=== PATIENT | female | born 1970 | race Caucasian/White ===

== ENCOUNTER 2022-11-28 14:55 | Outpatient (REF) | payer MEDICARE, SELFPAY ==
[2022-11-28 17:25] LABS: MANUAL DIFF FLAG NO
[2022-11-28 18:10] LABS: Basophils Absolute Auto 0.1 X10*3/uL (0.0-0.2); Basophils Percent Auto 0.6 % (0-2); Eosinophils Absolute Auto 0.4 X10*3/uL (0.0-0.4); Eosinophils Percent Auto 4.5 % (0-4); Hematocrit 39.5 % (37.0-47.0); Hemoglobin 13.4 g/dl (12.0-16.0); Imm Gran Abs Auto 0.04 X10*3/uL (0.00-0.03); Imm Gran Pct Auto 0.4 % (0.0-0.4); Lymphocytes Absolute Auto 2.5 X10*3/uL (1.2-4.9); Lymphocytes Percent Auto 26.8 % (20-40); Mean Corpuscular HGB Conc 33.9 g/dl (31.0-35.0); Mean Corpuscular Hemoglobin 34.3 pg (27.0-33.0); Mean Platelet Volume 11.5 fL (9.4-12.3); Monocytes Absolute Auto 0.8 X10*3/uL (0.1-1.2); Monocytes Percent Auto 8.7 % (2-11); Neutrophils Absolute Auto 5.6 x10*3/uL (2.0-8.3); Platelet Count 110 X10*3/uL (160-400); Red Blood Count 3.91 X10*6/uL (4.20-5.50); Red Cell Distribution Width 14.5 % (11.0-16.0); White Blood Count 9.5 X10*3/uL (4.8-10.8)
[2022-11-28 18:58] LABS: Alanine Aminotransferase 31 U/L (0-31); Albumin Level 3.6 g/dL (3.5-5.0); Alkaline Phosphatase 104 U/L (39-117); Anion Gap 14 (12-20); Aspartate Amino Transferase 60 U/L (5-31); Bilirubin Total 1.6 mg/dL (0.0-1.0); Blood Urea Nitrogen 11 mg/dL (9-16); Calcium 9.6 mg/dL (8.4-10.2); Carbon Dioxide 25 mmol/L (22-29); Chloride 101 mmol/L (96-108); Cholesterol 168 mg/dL; Estimated Glomerular Filt Rate > 60; Glucose Fasting 99 mg/dL (60-99); HDL Cholesterol 20 mg/dL; Iron 77 mcg/dL (30-160); LDL Cholesterol Calculated 110 mg/dl; Percent Iron Saturation 27 % (15-50); Potassium 3.1 mmol/L (3.3-5.1); Sodium 137 mmol/L (135-145); Total Iron Binding Capacity 287 mcg/dL (228-428); Total Protein 8.7 g/dL (6.5-8.0); Triglycerides 191 mg/dL; Unsaturated Iron Binding 210 ug/dL
[2022-11-28 19:08] LABS: Ferritin 368 ng/mL (10-250); TSH reflex Free T4 1.61 uIU/mL (0.32-4.0); Vitamin D 25-OH Total 12.4 ng/mL (>30)
[2022-11-29 05:29] LABS: Estimated Average Glucose 114 mg/dL; Hemoglobin A1C 134.3202 umol/L; Hemoglobin A1c % 5.6 %
== END 2022-11-28 14:56 | disposition home or self-care (01) ==
LOC: HO.CHCLDS 14:55
PROVIDERS: Visit Provider Family Medicine
DX: R30.0 Dysuria (principal); I10 Essential (primary) hypertension; E66.01 Morbid (severe) obesity due to excess calories; L65.9 Nonscarring hair loss, unspecified
CPT/HCPCS: 36415; 80053; 80061; 82306; 82652; 82728; 83036; 83540; 84443; 85025; 87086; 87088; 87186

== ENCOUNTER 2022-12-04 14:05 | Outpatient (REF) | payer MEDICARE, SELFPAY ==
[2022-12-04 17:59] LABS: Anion Gap 15 (12-20); Blood Urea Nitrogen 12 mg/dL (9-16); Calcium 8.9 mg/dL (8.4-10.2); Carbon Dioxide 23 mmol/L (22-29); Chloride 103 mmol/L (96-108); Estimated Glomerular Filt Rate > 60; Glucose Random 74 mg/dL (60-115); Potassium 3.5 mmol/L (3.3-5.1); Sodium 137 mmol/L (135-145)
== END 2022-12-04 14:06 | disposition home or self-care (01) ==
LOC: HO.CHCLDS 14:05
PROVIDERS: Visit Provider Family Medicine
DX: E87.6 Hypokalemia (principal)
CPT/HCPCS: 36415; 80048

== ENCOUNTER 2023-08-05 14:36 | Outpatient (AMB) | payer MEDICARE, MEDICAID, SELFPAY ==
--- NOTE | 2023-08-05 14:42 | MHC.OFFVIS ---
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 Patient has wounds on her left foot , dressing changed daily at home. States wounds being treated at [facility]. Patient ambulates with walker and wheelchair. Had vein procedures back in 2016, states she's had [address] Light. 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 Complaints include pain over varicosities, swelling of lower extremities, cramping, fatigue, and heaviness of the lower extremities. She actually has a nonhealing ulcer on the left portion of her foot that has been nonhealing since January of 2023. She has been followed by the [facility].. It is noted more so in left leg. Of note she has been diagnosed and treated for congestive heart failure as well. Patient notes 5 or 6 different venous procedures performed by Dr. Light in the past Patient denies any history of DVT/ PE. Patient denies any history of phlebitis. Trial of compression includes - [id number] which she was unable to tolerate and currently is using Bipin wraps They now present for vascular evaluation regarding their varicose veins. Review of Systems Const Reports as per HPI ENT Reports no additional complaints Card Denies chest pain, Denies chest pain at rest and Denies chest pain with activity Resp Denies chest congestion and Denies cough GI Reports no additional complaints Musc Details: pain over varicosities, aching of lower extremities, swelling, cramping, heaviness and tiredness, itching Denies abnormal gait Skin/Breast Reports pruritus and Denies wounds Neuro Reports no additional complaints and Denies abnormal gait Psych Denies no additional complaints Physical Exam Const General: cooperative, healthy appearing and comfortable Orientation/consciousness: oriented to person, oriented to place and oriented to time Neck Carotids: no bruits Chest Chest palpation & inspection: normal inspection of the chest and normal palpation of entire chest wall Resp Effort & Inspection: normal respiratory effort and able to speak in complete sentences Cardio Rate: regular rate Heart sounds: S1 normal heart sound present and S2 normal heart sound present Peripheral pulses: Peripheral pulses 2+ throughout GI Inspection: Yes normal to inspection Skin Other: +2 edema CEAP Classification C6 - active ulceration Ep - Etiology Primary As - superficial veins P - reflux General skin exam: dry skin Neuro General: oriented to person, oriented to place and oriented to time Extrem Right lower extremity: full ROM, normal capillary refill and edema Left lower extremity: full ROM, normal capillary refill and edema Psych Mental Status: mental status grossly normal Assessment & Plan Assessment & Plan (1) Varicose veins of left lower extremity with inflammation: Code(s): I83.12 - Varicose veins of left lower extremity with inflammation Plan: In short patient has significantly edematous lower extremities which may be leading to the nonhealing of her foot ulceration. We did discuss that this may be multifactorial in nature. She is obese does have a history of congestive heart failure in addition has a known history of venous disease as well. I have taken the liberty of repeating her venous insufficiency testing to see if there is any additional varicosities that may need treatment. In addition she may need lymphedema treatment as well. She will continue care at the [facility]. She will follow up with us after venous insufficiency testing. Thank you for allowing us to assist in her care. If there are any questions or concerns please do not hesitate to contact us. Orders: Orders US venous duplex LE BI 1 Week I83.12 - Varicose veins of left lower extremity with inflammation Coding Level of Care Code Est Pt Level 4 (36200) Diagnoses Varicose veins of left lower extremity with inflammation I83.12
== END 2023-08-05 15:46 | disposition home or self-care (01) ==
PROVIDERS: PCP Family Medicine; Visit Provider Surgery Vascular Surgery
DX: I83.12 Varicose veins of left lower extremity with inflammation (principal)
CPT/HCPCS: 99213

== ENCOUNTER → 2023-08-05 14:36 | Outpatient (BNVA) | payer MEDICARE, SELFPAY | PROVIDERS: PCP Family Medicine; Visit Provider Surgery Vascular Surgery | DX: I83.12 Varicose veins of left lower extremity with inflammation (principal) | CPT/HCPCS: 99212 ==

== ENCOUNTER 2023-12-12 11:51 | Outpatient (REF) | payer MEDICARE, MEDICAID, SELFPAY ==
[2023-12-12 14:17] LABS: MANUAL DIFF FLAG NO
[2023-12-12 14:45] LABS: Basophils Absolute Auto 0.1 X10*3/uL (0.0-0.2); Basophils Percent Auto 0.9 % (0-2); Eosinophils Absolute Auto 0.4 X10*3/uL (0.0-0.4); Hematocrit 48.2 % (37.0-47.0); Hemoglobin 16.3 g/dl (12.0-16.0); Imm Gran Abs Auto 0.02 X10*3/uL (0.00-0.03); Imm Gran Pct Auto 0.2 % (0.0-0.4); Lymphocytes Absolute Auto 2.5 X10*3/uL (1.2-4.9); Lymphocytes Percent Auto 28.5 % (20-40); Mean Corpuscular HGB Conc 33.8 g/dl (31.0-35.0); Mean Corpuscular Hemoglobin 34.2 pg (27.0-33.0); Mean Platelet Volume 11.2 fL (9.4-12.3); Monocytes Absolute Auto 0.9 X10*3/uL (0.1-1.2); Monocytes Percent Auto 10.6 % (2-11); Neutrophils Absolute Auto 4.9 x10*3/uL (2.0-8.3); Neutrophils Percent Auto 55.8 % (45-73); Platelet Count 111 X10*3/uL (160-400); Red Blood Count 4.77 X10*6/uL (4.20-5.50); Red Cell Distribution Width 14.1 % (11.0-16.0); White Blood Count 8.7 X10*3/uL (4.8-10.8)
[2023-12-12 14:56] LABS: B Type Natriuretic Peptide 20 pg/mL (<100)
[2023-12-12 15:02] LABS: Alanine Aminotransferase 22 U/L (0-31); Alkaline Phosphatase 92 U/L (39-117); Anion Gap 15 (12-20); Aspartate Amino Transferase 37 U/L (5-31); Bilirubin Total 2.7 mg/dL (0.0-1.0); Blood Urea Nitrogen 13 mg/dL (9-16); Carbon Dioxide 26 mmol/L (22-29); Chloride 100 mmol/L (96-108); Cholesterol 196 mg/dL (<200); Estimated Glomerular Filt Rate > 60; Glucose Random 111 mg/dL (60-115); HDL Cholesterol 45 mg/dL (>40); LDL Cholesterol Calculated 127 mg/dL (<100); Magnesium 2.2 mg/dL (1.6-2.6); Potassium 3.5 mmol/L (3.3-5.1); Sodium 137 mmol/L (135-145); Total Protein 8.9 g/dL (6.5-8.0); Triglycerides 120 mg/dL (<150)
[2023-12-12 15:11] LABS: Creatinine Urine 118.64 mg/dL; Microalbum/Creatinine Ratio Ur 8.4 ug/mg cr (<30)
[2023-12-12 15:14] LABS: HIV AB/AG Nonreactive (Nonreactive); HIV Num 1 0.05 S/CO (0.00-0.99); ~HepC Num1 0.21 S/CO (0.00-0.79); ~Hepatitis C Antibody Nonreactive (Nonreactive)
[2023-12-12 15:23] LABS: Ferritin 255 ng/mL (10-250); TSH reflex Free T4 1.63 uIU/mL (0.32-4.0); Vitamin D 25-OH Total 66.3 ng/mL (>30)
== END 2023-12-12 11:52 | disposition home or self-care (01) ==
LOC: HO.CHCLDS 11:51
PROVIDERS: Visit Provider Family Medicine
DX: E66.01 Morbid (severe) obesity due to excess calories (principal); M19.90 Unspecified osteoarthritis, unspecified site; Z13.9 Encounter for screening, unspecified; L65.9 Nonscarring hair loss, unspecified; I50.32 Chronic diastolic (congestive) heart failure
CPT/HCPCS: 36415; 80053; 80061; 82043; 82306; 82570; 82728; 83735; 83880; 84443; 85025; 86803; 87389

== ENCOUNTER 2023-12-31 12:50 | Outpatient (REF) | payer MEDICARE, MEDICAID, SELFPAY ==
--- NOTE | ~2023-12-31 | US_ITS ---
EXAMINATION: US LOWER EXTREMITY VENOUS (REFLUX EXAM), BILATERAL CLINICAL INDICATION: Chronic venous insufficiency with lower extremity varicose veins and inflammation. History of multiple prior venous procedures. Nonhealing venous wounds COMPARISON: None. TECHNIQUE: Color flow triplex imaging and compression Doppler was performed to evaluate both the deep and the superficial systems bilaterally. To evaluate the superficial system, the examination was performed in the upright position. Color-flow Doppler ultrasound and compression ultrasound were utilized. In addition, maneuvers were utilized to demonstrate reflux. FINDINGS: 1. DEEP VENOUS ULTRASOUND OF THE RIGHT LOWER EXTREMITY: Common Femoral Vein: Compressible, normal respiratory variation and augmented flow. Femoral Vein: Compressible, normal color flow and augmentation. Popliteal Vein: Compressible, normal augmentation. Deep Reflux: There is no evidence of reflux in the deep system in either the common femoral vein, superficial femoral or the popliteal vein. There is no evidence of a Streeter's cyst. 2. SUPERFICIAL ULTRASOUND WITH DOPPLER OF RIGHT LOWER EXTREMITY: GREAT SAPHENOUS VEIN: Saphenofemoral Junction: 0.8 cm; Reflux: 0 ms Proximal Thigh: 0.8 cm; Reflux: 0 ms Mid Thigh: 0.7 cm; Reflux: 0 ms Above Knee: 0.5 cm; Reflux: 0 ms At Knee: 0.3 cm; Reflux: 0 ms Below Knee: 0.2 cm; Reflux: 0 ms Mid Calf: Not visualized Ankle: Not visualized DUPLICATED MEDIAL GREAT SAPHENOUS VEIN: Diameter: None imaged Reflux: NA DUPLICATED LATERAL GREAT SAPHENOUS VEIN: Diameter: 0.4 cm Reflux: NA SMALL SAPHENOUS VEIN: Saphenopopliteal Junction: 0.4 cm; Reflux: 0 ms Proximal: 0.3 cm; Reflux: 0 ms Distal: 0.3 cm; Reflux: 0 ms VEIN OF GIACOMINI: Size: NA Reflux: NA PERFORATORS: Location: None imaged Size: NA Reflux: NA VARICOSITIES: Location: Mid thigh and distal thigh off the great saphenous vein Size: 0.3 to 0.6 cm Reflux: None VARICOSITIES: Location: Posterior mid calf Reflux: Occluded with focal thrombus 3. DEEP VENOUS ULTRASOUND OF THE LEFT LOWER EXTREMITY: Common Femoral Vein: Compressible, normal respiratory variation and augmented flow. Femoral Vein: Compressible, normal color flow and augmentation. Popliteal Vein: Compressible, normal augmentation. Deep Reflux: Deep venous reflux in the popliteal vein measuring 1204 ms There is no evidence of a Streeter's cyst. 4. SUPERFICIAL ULTRASOUND WITH DOPPLER OF LEFT LOWER EXTREMITY: GREAT SAPHENOUS VEIN: Saphenofemoral Junction: 0.9 cm; Reflux: 0 ms Proximal Thigh: 0.6 cm; Reflux: 1644 ms Mid Thigh: Not visualized Above Knee: Not visualized At Knee: Not visualized Below Knee: Not visualized Mid Calf: Not visualized Ankle: Not visualized DUPLICATED MEDIAL GREAT SAPHENOUS VEIN: Diameter: None imaged Reflux: NA DUPLICATED LATERAL GREAT SAPHENOUS VEIN: Diameter: None imaged Reflux: NA SMALL SAPHENOUS VEIN: Saphenopopliteal Junction: 0.4 cm; Reflux: 0 ms Proximal: 0.4 cm; Reflux: 0 ms Distal: 0.4 cm; Reflux: 0 ms VEIN OF GIACOMINI: Size: NA Reflux: NA PERFORATORS: Location: None imaged Size: NA Reflux: NA VARICOSITIES: Location: Proximal thigh of the great saphenous vein subsequently extending through the mid thigh, distal thigh and proximal calf Size: 0.3 to 0.5 cm Reflux: 800 ms US/US venous duplex LE BI IMPRESSION: Right: Superficial thrombophlebitis within varicose vein in the posterior mid calf. The great saphenous vein in the mid calf and ankle is not visualized. No significant venous insufficiency or reflux in the visualized great saphenous vein or small saphenous vein Left: Left great saphenous vein from the mid thigh through the calf is not visualized consistent with prior procedures. Varicose vein extending off the residual greater saphenous vein with reflux as described above Electronically signed by: Osmin Mccray MD 01/05/2024 03:35 PM EDT
== END 2023-12-31 12:51 | disposition home or self-care (01) ==
LOC: HO.US 12:50
PROVIDERS: PCP Family Medicine; Visit Provider Surgery Vascular Surgery
DX: I83.12 Varicose veins of left lower extremity with inflammation (principal)
CPT/HCPCS: 93970

== ENCOUNTER 2024-06-21 14:49 | Outpatient (AMB) | payer MEDICARE, MEDICAID, SELFPAY ==
--- NOTE | 2024-06-21 14:51 | A.OFFVIS_ITS ---
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 Previously was seen at [facility] but would like to switch. It seems that she has been hospitalized in the past with a diagnosis of congestive heart failure. Currently, she comes in a wheelchair. She states she has neuropathy in her feet and hence has difficulty walking. Minimal ambulation according to her. Within limits of her activity, she is not having any chest pain or shortness of breath or in fact any cardiac symptoms at all. No prior history of any coronary disease or myocardial infarction. Has hypertension on appropriate regimen. Denies any history of diabetes. Listed to be a smoker. [facility] Medical History (Updated 06/21/24 @ 15:29 by Ho Caban MD) Primary hypertension Chronic heart failure with preserved ejection fraction (HFpEF) CHF (congestive heart failure) Family History (Updated 06/21/24 @ 14:59 by Jeanette Boston) Father Heart attack Mother Asthma Social History (Updated 06/21/24 @ 15:00 by Jeanette Boston) Alcohol intake: current Alcohol intake frequency: a few times a week Alcohol type: beer and wine Tobacco use type: Cigarette Cigarettes Per Day: 3 Review of Systems Const Denies weakness ENT Denies dizziness Card Denies chest pain, Denies chest pain with activity, Denies syncope, Denies rapid heart rate, Denies pedal edema, Denies edema, Denies leg edema, Denies lightheadedness, Denies palpitations, Denies dyspnea, Denies dyspnea on exertion and Denies orthopnea Resp Denies cough, Denies dyspnea and Denies dyspnea on exertion GI Denies hematochezia and Denies change in stool character Musc Denies abnormal gait, Denies muscle cramps, Denies muscle weakness, Denies numbness, Denies radiating pain into limb and Denies tingling Neuro Denies abnormal gait, Denies dizziness, Denies syncope, Denies numbness, Denies tingling and Denies weakness Endo Denies palpitations Physical Exam Vital Signs: Last Vital Signs Pulse 80 06/21/24 14:52 BP 124/68 06/21/24 14:52 BMI result Body Mass Index 45.4 Const General: comfortable and no acute distress Orientation/consciousness: patient oriented x3 HEENT Other: Unremarkable Head: Yes normal to inspection Neck Neck: Yes normal visual inspection Chest Chest palpation & inspection: normal inspection of the chest Resp Auscultation: clear to auscultation bilaterally Cardio Palpation: normal PMI Heart sounds: S1 normal heart sound present, S2 normal heart sound present, no gallops, Murmur heart sound present systolic III/ and at the right sternal border and no rubs GI Palpation (GI): Soft to palpation Back/Spine/Pelvis Other: unremarkable Skin General skin exam: no rashes or lesions noted Neuro General: patient oriented x3 Extrem General: Yes normal to inspection Psych Mental Status: mental status grossly normal Office Procedures EKG Details: EKG with underlying sinus rhythm at 76/Min; cannot exclude old anterior infarct but more likely from body habitus; [place] [id number], Complete Assessment & Plan Assessment & Plan (1) Chronic heart failure with preserved ejection fraction (HFpEF): Code(s): I50.32 - Chronic diastolic (congestive) heart failure Category: Medical (2) Primary hypertension: Code(s): I10 - Essential (primary) hypertension Category: Medical Plan Overall, history of heart failure with preserved ejection fraction, hypertension, poor mobility, reasonably stable with no active symptoms. She may continue the current regimen of amlodipine, lisinopril hydrochlorothiazide. Does not seem to be on any other diuretics. In forced lifestyle changes including appropriate diet for congestive heart failure. She has an aortic stenosis murmur on exam and hence we will get an echocardiogram for further evaluation. A cardiac BNP checked last year was well within normal limits and hence reassuring. Follow-up in 3 months. Discussed with family who came for appointment. Orders: Orders CA echo transthoracic complete Today I35.0 - Nonrheumatic aortic (valve) stenosis, I50.32 - Chronic diastolic (congestive) heart failure Coding Level of Care Code New Pt Level 4 (25356) Complex EM visit Add On G2211 Diagnoses Chronic heart failure with preserved ejection fraction (HFpEF) I50.32 Primary hypertension I10 CPT Codes EKG - CPT: 41065-[id number], Complete ([id number])
[2024-06-21 14:52] VITALS: BP 124/68; PULSE 80; BMI 45.4
--- OUTSIDE RECORDS SUMMARY | 2024-06-21 17:38 | XMS_ITS | Encounter Summary ---
Author Organization [employer] Address [address] [facility] [address] [place] [address] Care Team Providers Care Senior Project Accountant Name Role Phone Michelle Butterfield MD Primary Care Provider [phone] Encounter Details Date Type Department Care Team (Late st Contact Info) Description 12/09/2022 [facility] Management [address] [place] [address] Michelle Butterfield MD [address] [place], [place] [id number] Social History Tobacco Use Types Packs/Day Years Used Date Smoking Tobacco: Every Day Cigarettes Passive Smoke Exposure: Never Smokeless Tobacco: Current Comments Unknown Sex and Gender Information Value Date Recorded Sex Assigned at Female 10/16/2022 4:35 PM EDT Legal Sex Female 4:33 PM EDT Gender Identity Female 10/16/2022 4:35 PM EDT Sexual Orientation Straight 10/16/2022 4: 35 PM EDT documented as of this encounter Plan of Treatment Not on file documented as of this encounter Visit Diagnoses Not on filedocumented in this encounter Care Teams Senior Project Accountant Relationship Specialty Start Date End Date Michelle Butterfield MD [address] [place] [address] PCP - General Family Medicine 12/27/22 Prabhakar Delaney [address] [place] [address], [address], [place] [address] Consulting Physician Podiatry 02/24/23 documented as of this encounter
--- OUTSIDE RECORDS SUMMARY | 2024-06-21 17:38 | XMS_ITS | Clinical Summary ---
Author Organization [facility] Address [address] [place] [address] Care Team Providers Care Senior Branch Manager Name Role Phone Lula Jesus MD Primary Care Provider [phone] Medications amLODIPine (NORVASC) 10 MG tablet Take 10 mg by mouth 1 (one) time each day 05/21/19 22 Active buPROPion XL (WELLBUTRIN XL) 150 MG 24 hr tablet bupropion HCl XL 150 mg 24 hr tablet, extended release 01/04/20 21 Active clotrimazole (LOTRIMIN) 1 % cream clotrimazole 1 % topical cream Active furosemide (LASIX) 20 MG tablet TAKE 1 TABLET BY MOUTH EVERY DAY DOSE REDUCED 05/20/19 22 Active gabapentin (NEURONTIN) 300 MG capsule Take 300 mg by mouth in the morning and 300 mg at noon and 300 mg in the evening. 05/21/19 22 Active hydroCHLOROth iazide 25 MG tablet hydrochlorothiazide 25 mg tablet TAKE 1 TABLET BY MOUTH EVERY DAY Active lisinopril 5 MG tablet Take 5 mg by mouth 1 (one) time each day 05/18/19 22 Active nitrofurantoi n, macrocrystal- monohydrate, (MACROBID) 100 MG capsule TAKE 1 CAPSULE BY MOUTH TWICE A DAY FOR 5 DAYS 04/10/20 21 Active Active Problems Problem Noted Date Diagnosed Date Abnormal cervical Papanicolaou smear 05/29/2021 Hypertensive disorder 05/29/2021 Morbid obesity 05/29/2021 Immunizations Name Administration Dates Next Due Hepatitis B 11/24/2018 MMR 11/24/2018 Social History Tobacco Use Types Packs/Day Years Used Date Smoking Tobacco: Never Assessed Comments Unknown Sex and Gender Information Value Date Recorded Sex Assigned at Not on file Legal Sex Female 3:46 PM EST Gender Identity Not on file Sexual Orientation Not on file Plan of Treatment Health Maintenance Due Date Last Done Comments Breast Cancer Screening 1970 Hepatitis B Vaccine (1 of 3 - 19+ 3-dose series) 02/09/1988 11/24/2018 Colorectal Cancer Screening: Annual FOBT 2018 Colorectal Cancer Screening: Colonoscopy 2018 Colorectal Cancer Screening: Sigmoidoscopy 2018 Influenza Vaccine (#1) 2023 Pneumococcal Vaccine: Pediat rics (0 to 5 Years) and At-Risk Patients (6 to 64 Years) Aged Out No longer eligi ble based on patient's age to complete this topic Insurance Care Teams Senior Branch Manager Relationship Specialty Start Date End Date Lula Jesus MD [address] [place] [address] PCP - General Internal Medicine 04/16/21
--- OUTSIDE RECORDS SUMMARY | 2024-06-21 17:38 | XMS_ITS | Encounter Summary ---
Author Organization [employer] Address [address] [place] [address] Care Team Providers Care Bowling Ball Engraver Name Role Phone Michelle Butterfield MD Primary Care Provider [phone] Reason for Visit * Reason Onset Date Comments Appointment Request 06/04/2023 Encounter Details Date Type Department Care Team ([facility] st Contact Info) Description 06/04/2023 Telephone [facility] [address] [place] [address] Michelle Butterfield MD [address] [place], [place] [phone] Appointment Request Social History Tobacco Use Types Packs/Day Years Used Date Smoking Tobacco: Every Day Cigarettes Passive Smoke Exposure: Never Smokeless Tobacco: Current Housing Stability Answer Date Recorded What is your housing situation today? I have damion oseguera 02/06/[address] you li ve. Do you have problems with any of the following? None of the above 02/06/2023 Food Insecurity Answer Date Recorded Within the past 12 months, y ou worried that your food would run out before you got money to buy more: Never True 02/06/2023 Within the past 12 months,th e food you bought just didn't last and you didn't have enough money to get more: Never True Transportation Answer Date Recorded In the past 12 months, has l ack of transportation kept you from medical appts, meetings, work or from getting things needed for daily living? No 02/06/2023 Utilities Answer Date Recorded In the past 12 months, has t he electric, gas, oil or water company threatened to shut off services in your home? No 02/06/2023 Comments Unknown Sex and Gender Information Value Date Recorded Sex Assigned at Female 10/16/2022 4:35 PM EDT Legal Sex Female 4:33 PM EDT Gender Identity Female 10/16/2022 4:35 PM EDT Sexual Orientation Straight 10/16/2022 4: 35 PM EDT documented as of this encounter Miscellaneous Notes * Telephone Encounter - Mohan Escobar - 06/04/2023 10:30 AM EST Tc from patient calling to reschedule appt for 05/16 health condition phq-9 pap flu documented in this encounter Plan of Treatment Not on file documented as of this encounter Visit Diagnoses Not on filedocumented in this encounter Care Teams Bowling Ball Engraver Relationship Specialty Start Date End Date Michelle Butterfield MD [address] [place] [id number] PCP - General Family Medicine 12/27/22 Prabhakar Delaney [address] [place] [address], [address], [place] [address] Consulting Physician Podiatry 02/24/23 documented as of this encounter
--- OUTSIDE RECORDS SUMMARY | 2024-06-21 17:38 | XMS_ITS | Encounter Summary ---
Author Organization [employer] Address [address] [facility] [address] [place] [address] Care Team Providers Care Storeroom Attendant Name Role Phone Michelle Butterfield MD Primary Care Provider [phone] Reason for Visit * Reason Onset Date Comments Appointment Request 01/12/2024 Encounter Details Date Type Department Care Team ([facility] st Contact Info) Description 01/12/2024 Telephone [facility] [address] [place], [place] [id number] Michelle Butterfield MD [address] [place] [address] Appointment Request Social History Tobacco Use Types Packs/Day Years Used Date Smoking Tobacco: Every Day Cigarettes Passive Smoke Exposure: Never Smokeless Tobacco: Current Depression Answer Date Recorded Patient Health Questionnaire-9 Score 6 07/28/2023 Patient Health Questionnaire-9 Score 6 07/28/2023 Last PHQ-9: Questionnaire Data Not on file 0 07/28/2023 Housing Stability Answer Date Recorded What is [...] off services in your home? No 02/06/2023 Depression Answer Date Recorded Patient Health Questionnaire-2 Score 3 07/28/2023 Comments Unknown Sex and Gender Information Value Date Recorded Sex Assigned at Female 10/16/2022 4:35 PM EDT Legal Sex Female 4:33 PM EDT Gender Identity Female 10/16/2022 4:35 PM EDT Sexual Orientation Straight 10/16/2022 4: 35 PM EDT documented as of this encounter Miscellaneous Notes * Telephone Encounter - Marissa Tidwell - 01/12/2024 10:57 AM EDT Tc from pt would like to know if today appt can be switched to a tele. Due to daughter having an appt around the same time. documented in this encounter Plan of Treatment Not on file documented as of this encounter Visit Diagnoses Not on filedocumented in this encounter Additional Health Concerns Assessment Noted Time PHQ-9 Depression Total Score: 6 07/28/19 24 12:50 PM EDT documented as of this encounter Care Teams Storeroom Attendant Relationship Specialty Start Date End Date Michelle Butterfield MD [address] [place] [address] PCP - General Family Medicine 12/27/22 Prabhakar Delaney [address] [place] [address], [address], [place] [address] Consulting Physician Podiatry 02/24/23 documented as of this encounter
--- OUTSIDE RECORDS SUMMARY | 2024-06-21 17:38 | XMS_ITS | Continuity of Care Document ---
Author Organization [facility] Address [address] [place] [address]- Care Team Providers Care Cardiologist Name Role Phone Mast Daria PALACIOS Primary Care Physician Encounter [facility] Date(s): 05/04/24 - 06/03/24 [facility] [address] [place], [place] [phone] Encounter Type: Triage Allergies, Adverse Reactions, Alerts No Known Allergies Immunizations Given and Recorded Vaccine Date Status Refusal Reason Measles/Mumps/Rubella Virus Vaccine 1 11/24/18 Giv en hepatitis B adult vaccine 11/24/18 Given 1Result Comment: Reconstituted with sterile diluent. Lot: [id number] Exp: 02/23/2021 Medications amLODIPine 5 mg oral tablet 5 mg, 1, tablet, By Mouth, Daily, # 90 tablet, Refills 1, Tot. Refills 1, Maintenance, 07/30/22 4:03:00 PM EDT, Route to Pharmacy Electronically, [facility]/pharmacy #[id number], Partial fill upon patient request if the prescription is for a schedule II opioid drug., 163, cm, 07/30/22 15:46:00 EDT, Height, 147.4, kg, 02/23/21 1:35:00 EDT, Dry Weight Start Date: 07/30/22 Stop Date: 01/26/23 Status: Ordered Quantity: 90.0 Unit: tablet Repeat number: 2 ammonium lactate 12% topical cream 1, Topically, 2 times a day, # 140 Gm, 5 Refills, Maintenance, 07/11/21 9:27:00 AM EDT, Cream, [facility]/pharmacy #[id number], Partial fill upon patient request if the prescription is for a schedule II opioid drug., 1 Topically 2 times a day, 163, cm, 07/11/21 8:28:00 EDT, Height, 147.4, kg, 02/23/21 1:35:00 EDT, Dry Weight Start Date: 07/11/21 Status: Ordered Quantity: 140.0 Unit: g Repeat number: 6 buPROPion 150 mg/24 hours (XL) oral tablet, extended release 1 tablet = 150 mg, By Mouth, Every 24 hours, # 90 tablet, 1 Refills, Maintenance, 07/30/22 4:03:00 PM EDT, [facility]/pharmacy #[id number], 1 tablet By Mouth Every 24 hours,x90 days, 163, cm, 07/30/22 15:46:00 EDT, Height, 147.4, kg, 02/23/21 1:35:00 EDT, Dry Weight Start Date: 07/30/22 Stop Date: 01/26/23 Status: Ordered Quantity: 90.0 Unit: tablet Repeat number: 2 gabapentin 300 mg oral capsule 1, capsule, By Mouth, 3 times a day, # 270 capsule, Refills 0, Maintenance, 05/04/24 11:36:00 AM EST, Route to Pharmacy Electronically, [id number], 163, cm, 07/30/22 15:46:00 EDT, Height Start Date: 05/04/24 Status: Ordered Quantity: 270.0 Unit: capsule Repeat number: 1 hydrochlorothiazide 25 mg oral tablet 1, tablet, By Mouth, Daily, # 90 tablet, Refills 3, Maintenance, 07/16/23 11:42:00 AM EDT, Route to Pharmacy Electronically, [id number], 163, cm, 07/30/22 15:46:00 EDT, Height Start Date: 07/16/23 Status: Ordered Quantity: 90.0 Unit: tablet Repeat number: 1 lisinopril 5 mg oral tablet 1, tablet, By Mouth, Daily, # 90 tablet, Refills 3, Maintenance, 07/16/23 11:42:00 AM EDT, Route to Pharmacy Electronically, [id number], 163, cm, 07/30/22 15:46:00 EDT, Height Start Date: 07/16/23 Status: Ordered Quantity: 90.0 Unit: tablet Repeat number: 1 Problem List Condition Confirmation Course Effective Dates Status H ealth Status Informant + HPV 2012, 2014 Confirmed 2012 Active Alcohol dependence, remission Confirmed Active Situational anxiety Confirmed Active ASCUS of cervix with negative high risk HPV 2019 Confirmed 2019 Active Oxygen desaturation during sleep 1 Confirmed Active (HFpEF) heart failure with preserved ejection fraction Confirmed Active Hypertension Confirmed Active Depression, major Confirmed Active Morbid obesity Confirmed Active Obstructive sleep apnea, severe Confirmed Active Peripheral neuropathy Confirmed Active Prediabetes Confirmed Active Obeisty, severe Confirmed Active Tobacco dependence due to cigarettes, start age 44, not smoking as of Confirmed 2013 Active Venous insufficiency Confirmed Active 1to 67% on 2020 study Social History Social History Type Response Smoking Status 5-9 cigarettes (betw een 1/4 to 1/2 pack)/day in last 30 days;Former smoker, quit more than 30 days ago; Type: Cigarettes; Started at age: 44; Stopped at age: 51; entered on: 07/11/21 Sex Sex Representation Female (finding) Patient Care team information Care Team Personnel Name: Mary Crowell RN Position: S RN Member Role: Primary Care Nurse Name: Daria Mast DO Position: [facility] Resident Member Role: PCP Address: [address] [place] [address] Telecom: Name: Laura Cleveland RN Position: S RN Member Role: Primary Care Nurse Name: Natalia Abdalla RN Position: S RN Member Role: Primary Care Nurse Care Team Related Persons Name: AVELINA REYES Name: DRU ARELLANO Insurance Providers Guarantor name: ZHANE DOMENICOADELAIDE Health Plan Information #: 1 Payer: [facility] OPT Member Number: NA Policy Number: NA Group Number: NA Health Plan Information #: 2 Payer: MEDICARE PART B OUTPT Member Number: NA Policy Number: NA Group Number: NA Health Plan Information #: 3 Payer: [employer] Member Number: NA Policy Number: NA Group Number: NA
--- OUTSIDE RECORDS SUMMARY | 2024-06-21 17:38 | XMS_ITS | Clinical Summary ---
Author Organization [employer] Address [address] [place] [address] Care Team Providers Care Smoking Pipe Repairer Name Role Phone Michelle Butterfield MD Primary Care Provider [phone] Allergies No known active allergies Medications * This document contains information received from the source organization and may not represent a complete record from that organization. lisinopril 5 MG tablet Take 5 mg by mouth in the morning. 3 Active hydroCHLOROthia zide (HYDRODiuril) 25 MG tablet Take 25 mg by mouth in the morning. 3 Active gabapentin (Neurontin) 300 MG capsule Take 300 mg by mouth 3 times daily. 3 Active ammonium lactate (Amlactin) 12 % cream Apply topically 2 times daily. to affected area 3 Active terbinafine (LamISIL AT) 1 % cream Apply topically 2 times daily. 42 g 3 Active clotrimazole (Lotrimin) 1 % cream Apply topically 2 times daily. 90 g 2 3 Active Vortioxetine HBr 10 MG tablet Take 10 mg by mouth Once per day. 90 tablet 1 4 Active hydrOXYzine pamoate (Vistaril) 25 MG capsuleIndicati ons:Situational anxiety TAKE 1 CAPSULE BY MOUTH EVERY 6 HOURS NEEDED FOR ANXIETY 90 capsule 2 4 Active amLODIPine (Norvasc) 5 MG tablet TAKE 1 TABLET BY MOUTH EVERY DAY 90 tablet 3 4 Active cholecalciferol (Vitamin D-3) 50 MCG (2000 UT) capsuleIndicati ons:Vitamin D deficiency TAKE 1 CAPSULE (50 MCG) BY MOUTH IN THE MORNING 90 capsule 3 4 Active Active Problems Problem Noted Date Diagnosed Date Mass of thigh, right 01/05/2024 Assessment & Plan (01/05/2024 8:50 PM EDT): large indurated area in her posterior thigh, assymetric form her left thigh , will send US to help elucidate etiology of inducation (HFpEF) heart failure with preserved ejection fr action 06/19/2023 Assessment & Plan (06/20/2023 2:53 PM EST): Ordered XR chest to check if SOB is being caused by HFpEF. Referred her to lumber carrier operator for chronic condition. Labs: BNP, Basic Metabolic Panel, Magnesium Alcohol dependence 06/19/2023 Oxygen desaturation 06/19/2023 Overview (06/19/2023): to 67% on 2020 study Prediabetes 06/19/2023 Generalized anxiety disorder 06/19/2023 Assessment & Plan (01/05/2024 8:49 PM EDT): Mild improvement with current medication, will switch to Trintellix, no improvement with wellbutrin and SSRI. Tobacco dependence due to cigarettes 06/19/2023 Venous insufficiency 06/19/2023 Chronic cough 02/24/2023 Assessment & Plan (02/24/2023 4:02 PM EST): Patient with chronic cough will be sent for Pulmonary Function test Dietary counseling 02/24/2023 Exercise counseling 02/24/2023 Colon cancer screening 02/24/2023 Vitamin D deficiency 02/24/2023 Assessment & Plan (02/24/2023 4:05 PM EST): Patient will be send for labs: Vit.D 1,25. Peripheral neuropathy 11/28/2022 Assessment & Plan (11/28/2022 2:50 PM EDT): Hx of peripheral neuropathy, will refill gabapentin 300 mg. Lymphedema 11/28/2022 Assessment & Plan (06/20/2023 2:50 PM EST): Patient with history of lymphedema and heart failure, present at time of visit. Patient has open wound. Will benefit from referral to vascular surgery. Patient was prescribed Lasix 20 mg She has been seeing product support technician. Tool Honing Machine Set Up Operator gave patient a referral for compression socks but hasn't gone because she doesn't know where she can get them. I gave patient a list of places she could go get the compression socks. Assessment & Plan (11/28/2022 2:33 PM EDT): Patient wit history of lymphedema, present at time of visit. Will benefit from referral to product support technician. Referral placed. Depression 11/28/2022 Assessment & Plan (12/10/2023 9:46 AM EDT): Cont SSRI, will placed f/up. Recommend f/up in 1 month Assessment & Plan (08/13/2023 2:12 PM EDT): Patient was referred to , switch wellbutrin to prozac, scheduled for f/up. Assessment & Plan (11/28/2022 2:49 PM EDT): Will refill wellbutrin 150 mg. Chronic combined systolic an d diastolic congestive heart failure 11/28/2022 Assessment & Plan (11/28/2022 2:33 PM EDT): Hx of chronic CHF, will send amlodipine 5 mg. Arthritis 11/28/2022 Other sleep apnea 11/28/2022 Overview (11/28/2022): CPAP setting Mixed simple and mucopurulent chronic bronchitis 11/28/2022 Onychomycosis 11/28/2022 Assessment & Plan (11/28/2022 2:49 PM EDT): Patient with onychomycosis on bilateral feet upon examination. Will start on terbinafine 1% cream and Bactrim 160 mg tablet. Will send cephalexin 500 mg capsule. Osteoarthritis of both knees 11/28/2022 Impaired mobility and activities of daily living 11/28/2022 Assessment & Plan (11/28/2022 2:34 PM EDT): Patient with difficulty ambulating and standing for long periods of time. Encouraged elevated leg rest. Will refer to physical therapy for further evaluation. Alopecia 11/28/2022 Assessment & Plan (11/28/2022 2:35 PM EDT): Will send labs and check ferritin. Dysuria 11/28/2022 Assessment & Plan (11/28/2022 2:36 PM EDT): Patient with complaints of dysuria. Will send urine for culture and send urinalysis. Open wound 11/28/2022 Assessment & Plan (11/28/2022 2:42 PM EDT): 3.5 cm x 5.0 cm open wound on L foot. Will refer to podiatry for further evaluation. Breast cancer screening by mammogram 11/28/2022 Abnormal cervical Papanicolaou smear 05/29/2021 Hypertension 05/29/2021 Assessment & Plan (01/05/2024 8:47 PM EDT): Controlled. Cont hydrochlorothiazide and lisinopril. Target < 140/90 mmHg. Lab Results Component Value Date CREATININE 0.76 12/12/2023 Lab Results Component Value Date K 3.5 12/12/2023 Assessment & Plan (06/20/2023 2:45 PM EST): Controlled: will keep treating with medication. Advised to keep monitoring blood pressure at home. Assessment & Plan (02/24/2023 4:06 PM EST): Controlled: will keep treating with medication. Advised to keep monitoring blood pressure at home. Assessment & Plan (11/28/2022 2:49 PM EDT): Controlled. Continue current regimen of Lisinopril 5 mg, amlodipine 5 mg, and hydrochlorothiazide 25 mg. Morbid obesity 05/29/2021 Assessment & Plan (01/05/2024 8:47 PM EDT): Discussed calorie deficit, recommended reduction of 20-30% of maintenance calories; hedis registered nurse rn referral offered. Recommended to decrease soda and sugary beverage consumption. Recommended at least 20 g per meal of protein to assist with satiety. Recommended at least 150 min/week of moderate intensity exercise. Assessment & Plan (02/24/2023 4:04 PM EST): Discussed calorie deficit, recommended reduction of 20-30% of maintenance calories; hedis registered nurse rn referral offered. Recommended to decrease soda and sugary beverage consumption. Recommended at least 20 g per meal of protein to assist with satiety. Recommended at least 150 min/week of moderate intensity exercise. Assessment & Plan (11/28/2022 2:32 PM EDT): Will send labs to check levels. Encounters Date Type Department Care Team Description 03/23/2024 Refill [facility] [address] [place] [address] Michelle Butterfield MD Vitamin D deficiency from Last 3 Months Immunizations Name Administration Dates Next Due Hep B, adult 11/24/2018 MMR 11/24/2018 Social History Tobacco Use Types Packs/Day Years Used Date Smoking Tobacco: Every Day Cigarettes Passive Smoke Exposure: Never Smokeless Tobacco: Current Tobacco Cessation:Ready to Q uit: Not Asked; Counseling Given: Not Answered Depression Answer Date Recorded Patient Health Questionnaire-9 [...] Orientation Straight 10/16/2022 4: 35 PM EDT Last Filed Vital Signs Vital Sign Reading Time Taken Comments Blood Pressure 124/69 12/12/2023 10:32 AM EDT Pulse 71 12/12/2023 10:32 AM EDT Temperature 36.7 ??C (98.1 ??F) 12/12/2023 10:32 AM E DT Respiratory Rate 21 12/12/2023 10:32 AM EDT Oxygen Saturation 95% 12/12/2023 10:32 AM EDT Inhaled Oxygen Concentration - - Weight 116 kg (256 lb) 12/12/2023 10:32 AM EDT Height 162.6 cm (5' 4 ) 12/12/2023 10:32 AM EDT Body Mass Index 43.94 12/12/2023 10:32 AM EDT Plan of Treatment Health Maintenance Due Date Last Done Comments CT Colonography 1969 Colonoscopy 1969 Colorectal Cancer Screening 1969 FIT DNA/Cologuard 1969 FIT 1969 FOBT 1969 Sigmoidoscopy 1969 Alcohol/Substance Use Screening 1981 DTaP/Tdap/Td Vaccines (1 - Tdap) 02/09/1988 Hepatitis A Vaccines (1 of 2 - Risk 2-dose series) 02/09/1988 Pneumococcal Vaccine: 50+ Years (1 of 2 - PCV) 02/09/1988 Pap Smear 1990 Cervical Cancer Screening 1999 HPV/Cotest 1999 Mammogram 2009 Hepatitis B Vaccines (2 of 3 - 19+ 3-dose series) 12/22/2018 11/24/2018 Zoster Vaccines (1 of 2) 2019 COVID-19 Vaccine (2023-2 5 season) 2023 Influenza Vaccine (#1) 2023 SDOH Screening 06/12/2024 06/12/2023 Depression Screening 07/27/2024 07/28/2023, 07/28/2023 Diabetes: Hemoglobin A1C 12/11/2024 024, 11/28/2022 Tobacco Screening 12/11/2024 12/12/2023 Lipid Panel 12/11/2028 12/12/2023, 11/28/2022 RSV Patients and Patients Aged 60 years or older (1 - 1-dose 75+ series) 02/09/2044 HIV Screening Completed 12/12/2023 Hepatitis C Screening Completed 12/12/2023 HIB Vaccines Aged Out No longer eligi ble based on patient's age to complete this topic HPV Vaccines Aged Out No longer eligi ble based on patient's age to complete this topic IPV Vaccines Aged Out No longer eligi ble based on patient's age to complete this topic Meningococcal Vaccine Aged Out No austin radha eligible based on patient's age to complete this topic RSV under 20 months Aged Out No longe r eligible based on patient's age to complete this topic Rotavirus Vaccines Aged Out No longer eligible based on patient's age to complete this topic Procedures Procedure Name Priority Date/Time Associated Diagnosis Comments LIPID PANEL, STANDARD Routine 12/12/2023 11:53 AM EDT Morbid obesity (CMS/HCC) POCT GLYCATED HEMOGLOBIN, TOTAL Routine 12/12/2023 11:02 AM EDT Prediabetes HEPATITIS C AB W/REFL TO HCV RNA, QN, PCR Routine 12/12/2023 10:53 AM EDT Encounter for health-related screening HIV 1/2 ANTIGEN/ANTIBODY, FOURTH GENERATION W/RFL Routine 12/12/2023 10:53 AM EDT Encounter for health-related screening from Last 3 Months or Most Recently Relevant to Health Maintenance Results * (ABNORMAL) Lipid Panel, Standard (12/12/2023 11:53 AM EDT) Triglycerides 120 <150 mg/dL [facility] Comment:Desirable Triglyceri de: less than 150 mg/dLBorderline High Triglyceride 150-199 mg/dLHigh Triglyceride: 200-499 mg/dLVery High Triglyceride: greater than or equal to 5OO mg/dL Cholesterol 196 <200 mg/dL [facility] Comment:Desirable Cholestero l: less than 200 mg/dLBorderline High Cholesterol: 200-239 mg/dLHigh Cholesterol: greater than 239 mg/dL LDL Cholesterol Calculated 127(H) <100 mg/dL [facility] Comment:Desirable LDL: less than 100 mg/dLNear Optimal/Above Optimal LDL: 110- 129 mg/dLBorderline High LDL: 130-159 mg/dLHigh LDL: 160-189 mg/dLVery High LDL: greater than or equal to 190 mg/dL HDL Cholesterol 45 >40 mg/dL [facility] Comment:Desirable HDL: great er than 40 mg/dL Note: This HDL assay may give artificially low results in patients with liver disease. Blood Venous blood specimen / Unknown 12/12/2023 11:53 AM EDT 12/12/2023 2:28 PM EDT Michelle Butterfield MD LAB BLOOD ORDERABLES Final Re sult [facility] [address] [place] [address] [phone] * POCT HGB A1C (12/12/2023 11:02 AM EDT) Hemoglobin A1C 5.2 4.0 - 6.0 % QC Media Lot # [id number] Lot# Expiration Date 283 Blood 12/12/2023 11:0 2 AM EDT Michelle Butterfield MD POINT OF CARE TEST ENTER/EDIT ORDERABLES Final Result * Hepatitis C Antibody with Reflex to HCV, RNA, Quantitative, Real-Time PCR (12/12/2023 10:53 AM EDT) Hepatitis C Antibody Nonreactive Nonreactive [facility] Comment:Antibodies to HCV no t detected; does not exclude early acuteHCV infection. Blood Venous blood specimen / Unknown 12/12/2023 10:53 AM EDT 12/12/2023 2:28 PM EDT us Michelle Butterfield MD LAB BLOOD ORDERABLES Final Re sult [facility] [address] [place] [phone] [phone] * HIV-1/2 Antigen and Antibodies, Fourth Generation, with Reflexes (12/12/2023 10:53 AM EDT) HIV AB/AG Nonreactive Nonreactive [facility] Comment:HIV-1 p24 Ag and/or HIV-1/HIV-2 Ab not detected.A test result that is nonreactive does not exclude thepossibility of exposure to or infection with HIV-1 and/orHIV-2. Nonreactive results in this assay for individualswith prior exposure to HIV-1 and/or HIV-2 may be due toantigen and antibody levels that are below the limit ofdetection of this assay.The [employer] HIV Ag/Ab Combo assay result andsupplemental assay results should be interpreted inconjunction with the patient's clinical presentation,history and other laboratory results. If the results areinconsistent with clinical evidence, additional testing issuggested to confirm the result. Blood Venous blood specimen / Unknown 12/12/2023 10:53 AM EDT 12/12/2023 2:28 PM EDT us Michelle Butterfield MD LAB BLOOD ORDERABLES Final Re sult [facility] [address] [place] [phone] [phone] from Last 3 Months or Most Recently Relevant to Health Maintenance Insurance [facility] STANDARD MEDICARE Care Teams Smoking Pipe Repairer Relationship Specialty Start Date End Date Michelle Butterfield MD [address] [place] [id number] PCP - General Family Medicine 12/27/22 Prabhakar Delaney [address] [place] [address], [address], [place] [address] Consulting Physician Podiatry 02/24/23
== END 2024-06-21 15:23 | disposition home or self-care (01) ==
PROVIDERS: PCP Family Medicine; Visit Provider Internal Medicine
DX: I50.32 Chronic diastolic (congestive) heart failure (principal); I10 Essential (primary) hypertension
CPT/HCPCS: 93010; 99204; G2211

== ENCOUNTER → 2024-06-21 14:49 | Outpatient (BNVA) | payer MEDICARE, MEDICAID, SELFPAY | PROVIDERS: PCP Family Medicine; Visit Provider Internal Medicine | DX: I11.0 Hypertensive heart disease with heart failure (principal); I50.32 Chronic diastolic (congestive) heart failure | CPT/HCPCS: 93005; 99202 ==

== ENCOUNTER → 2024-07-09 14:01 | Outpatient (REF) | payer MEDICARE, MEDICAID, SELFPAY ==
--- NOTE | 2024-07-09 14:04 | CA_ITS ---
Transthoracic Echocardiogram Patient (Last, First, Middle): Edel Wick J Gender: Female Date of : 1970 Age: 54 Procedure Date: 07/09/2024 Procedure Type: Transthoracic Echocardiogram Location: OP Height: 162.56 cm Weight: 108.86 kg BSA: 2.11 m2 Heart Rate: bpm BP: 124 / 80 mmHg Estate Planning Counselor: Referring MD: Ho Caban MD Symptoms: I35.0 - Nonrheumatic aortic (valve) stenosis Study Quality: Fair ECG Rhythm: Sinus Conclusions: - Normal left ventricular size and systolic function. There is moderately increased left ventricular wall thickness. The visually estimated ejection fraction is between 60-65%. - Elevated filling pressures. - Normal right ventricular cavity size and systolic function. - There is mild to moderate aortic valve stenosis. Gradients are higher than expected for valve area. The patient is in high output state. Findings Left Ventricle Normal left ventricular size and systolic function. There is moderately increased left ventricular wall thickness. The visually estimated ejection fraction is between 60-65%. There is no evidence of regional wall motion abnormalities. Abnormal diastolic function is noted. Spectral Doppler is indicative of a pseudonormal filling pattern. Elevated filling pressures. Right Ventricle Normal right ventricular cavity size and systolic function. Atria The left atrium is mildly dilated. Aortic Valve The aortic valve was not well visualized. There is mild calcification of the aortic valve. There is mild to moderate aortic valve stenosis. The peak aortic velocity is 3.12 m/s. The mean gradient is 21 mmHg. The aortic valve area is 1.84 cm2. There is no aortic valve regurgitation. Mitral Valve There is mild mitral annular calcification. There is no mitral valve regurgitation. There is no mitral valve stenosis. Pulmonic Valve The pulmonic valve is likely normal. There is no pulmonic valve regurgitation. Tricuspid Valve Normal tricuspid valve structure and function. There is no tricuspid valve regurgitation. Normal right atrial pressure. There is no evidence of pulmonary hypertension. Great Vessels There is mild dilatation of the ascending aorta measuring 3.40 cm. The visualized portions of the pulmonary artery and branches are normal. Venous The inferior vena cava is normal in size and collapses greater than 50% with inspiration. Pericardium/Pleural There is no evidence of pericardial effusion. Prior Study Comparison No prior study available for comparison. Measurements 2D Linear Measurements IVSd: 1.35 0.6-0.9/0.6-1.0 cm LVIDd: 5.65 3.9-5.3/4.2-5.9 cm LVIDd Index: 2.68 2.4-3.2/2.2-3.1 cm/m2 LVIDs: 3.51 2.0-3.6 cm LVPWd: 1.33 0.7-1.1 cm Ao Root: 3.10 2.1-3.5 cm LA Diam: 5.40 2.7-3.8/3.0-4.0 cm LAIDs Index: 2.56 1.5-2.3 cm/m2 LV Mass: 413.55 67-162/88-224 g LV Mass Index: 196.00 43-95/49-115 g/m2 LVOT Diam: 2.20 3.0+(-)1.3 cm Mitral Valve MV VTI: 0.37 MV Pk Leandro: 0.93 MV Mn Leandro: 0.64 MV Pk Grad: 3.00 MV Mn Grad: 2.00 MV Pk E: 1.05 MV PK A: 0.93 MV Decel Time: 265.00 E/A: 1.10 E'Lateral: 3.92 E'Medial: 4.57 E/E' Med: 23.00 E/E' Lat: 26.80 PHT: 78.00 MVA PHT: 2.82 MVA Continuity: 3.02 Decel [place]: 3.98 Aortic Valve AoV Pk Leandro: 3.12 AoV Mn Leandro: 2.10 AoV VTI: 0.61 AoV Pk Grad: 39.00 Aov Mn Grad: 21.00 NING Cont.VTI: 1.84 LVOT LVOT Pk Leandro: 1.44 LVOT Mn Leandro: 0.89 LVOT VTI: 0.30 LVOT Pk Grad: 8.00 LVOT Mn Grad: 4.00 LVOT Diam: 2.20 LVOT Area: 3.80 Diastolic Function MV Pk E: 1.05 MV Pk A: 0.93 E/A: 1.10 E'Medial: 4.57 E/E' Med: 23.00 E' Laterial: 3.92 E/E' Lat: 26.80 Right Ventricle TAPSE (mm): 26.00 TVS' Leandro: 19.00 Tricuspid Valve TR Pk Leandro: 2.37 TR Pk Grad: 22.00 RA Press: 3.00 RVSP: 25.00 Great Vessels Aorta Ao Root-2D: 3.10 2.0-3.7 cm Ao Asc: 3.40 2.1-3.4 cm Pulmonary Valve PV Pk Leandro: 1.32 Peak PV Grad: 7.00 Updated in Other Vendor System with Status of Final Mitch Ash MD electronically signed on 07/11/2024 10:17:59 PM with status of Final
--- OUTSIDE RECORDS SUMMARY | 2024-07-09 16:22 | XMS_ITS | Clinical Summary ---
Author Organization [facility] Facility Address [address] [place] [address] Care Team Providers Care Fourdrinier Machine Tender Name Role Phone Lula Jesus MD Primary Care Provider [phone] Medications amLODIPine (NORVASC) 10 MG tablet Take [...] to complete this topic Insurance Care Teams Fourdrinier Machine Tender Relationship Specialty Start Date End Date Lula Jesus MD [address] [place] [address] PCP - General Internal Medicine 04/16/21
== END ==
LOC: HO.CARD 14:01
PROVIDERS: PCP Family Medicine; Visit Provider Internal Medicine
DX: I35.0 Nonrheumatic aortic (valve) stenosis (principal); I50.32 Chronic diastolic (congestive) heart failure
CPT/HCPCS: 93306

== ENCOUNTER → 2024-07-09 14:04 | Outpatient (BNV) | payer MEDICARE, MEDICAID, SELFPAY | PROVIDERS: PCP Family Medicine; Visit Provider Internal Medicine Cardiovascular Disease | DX: I42.8 Other cardiomyopathies (principal); I35.0 Nonrheumatic aortic (valve) stenosis | CPT/HCPCS: 93306 ==

== ENCOUNTER 2024-09-29 13:51 | Outpatient (AMB) | payer MEDICARE, MEDICAID, SELFPAY ==
--- NOTE | 2024-09-29 13:58 | MHC.OFFVIS ---
Vital Signs 09/29/24 13:59 Height 5 ft 4 in BMI Reason not done Patient refused/unable BP 120/72 Blood Pressure Location Lt brachial Position Sitting Pulse 82 Intake Visit Reasons: 3m follow up Intake Note: 3 month follow-up feeling ok Rail Bonder Required: No Cancer Program Director: Cancer Program Director Present Accompanied by: Daughter Allergies Seasonal Allergies Allergy (Severe, Verified 06/21/24 14:55) Sneezing Medication List - Last Reconciled 09/29/24 by Hola Tinajero NP amlodipine 5 mg PO DAILY cholecalciferol (vitamin D3) 50 mcg PO QAM gabapentin 300 mg PO TID hydrochlorothiazide 25 mg PO DAILY lisinopril 5 mg PO DAILY HPI Comments Details: This is a 54-year-old female patient coming in for a follow-up visit. Patient with a history of congestive heart failure, hypertension, hyperlipidemia, smoker, and obesity. Patient underwent an echocardiogram recently and he is here to discuss the results with us. Patient is otherwise mostly sedentary and is in a wheelchair today. Patient sometimes uses her walker for mobility and has issues due to neuropathy pain in her feet. Patient is otherwise reporting feeling well overall and denies any cardiac symptoms including exertional chest pain, shortness of breath, palpitations, dizziness, orthopnea, PND, leg edema, presyncope, or syncope. Patient is affirming her compliance with all her medications. Unfortunately, patient continues to smoke about 3 cigarettes a day. [facility] Medical History Primary hypertension Chronic heart failure with preserved ejection fraction (HFpEF) CHF (congestive heart failure) Family History Father Heart attack Mother Asthma Social History Alcohol intake: current Alcohol intake frequency: a few times a week Alcohol type: beer and wine Tobacco use type: Cigarette Cigarettes Per Day: 3 Review of Systems Const Denies chills, Denies fatigue, Denies fever(s), Denies frequent falls, Denies weakness, Denies weight gain and Denies weight loss ENT Denies dizziness Card Denies chest pain, Denies leg edema, Denies lightheadedness, Denies palpitations, Denies dyspnea, Denies dyspnea on exertion, Denies orthopnea and Denies other (loss of consciousness) Resp Denies cough, Denies dyspnea and Denies dyspnea on exertion GI Denies hematochezia and Denies change in stool character Musc Denies abnormal gait, Denies muscle weakness, Denies numbness, Denies radiating pain into limb and Denies tingling Neuro Denies abnormal gait, Denies dizziness, Denies frequent falls, Denies numbness, Denies tingling and Denies weakness Endo Denies fatigue and Denies palpitations Physical Exam Vital Signs: Last Vital Signs Pulse 82 09/29/24 13:59 BP 120/72 09/29/24 13:59 Const General: cooperative, healthy appearing, comfortable and no acute distress Orientation/consciousness: patient oriented x3 HEENT Head: Yes normal to inspection Neck Neck: Yes normal visual inspection, Yes trachea midline and Yes supple Chest Chest palpation & inspection: normal inspection of the chest Resp Effort & Inspection: normal respiratory effort Auscultation: clear to auscultation bilaterally, no crackles, no rales, no rhonchi and no wheezes Cardio Jugular venous distension: no JVD Palpation: normal PMI Rate: regular rate Rhythm: regular rhythm Heart sounds: S1 normal heart sound present, S2 normal heart sound present, no click, no gallops, Murmur heart sound present systolic at the right sternal border and no rubs Peripheral pulses: Peripheral pulses 2+ throughout GI Inspection: Yes normal to inspection Palpation (GI): Soft to palpation Auscultation: normal bowel sounds Skin General skin exam: no rashes or lesions noted Neuro General: patient oriented x3 Extrem General: Yes normal to inspection, No no pedal edema and No calf tenderness Psych Appearance: grossly normal Mental Status: mental status grossly normal Speech and movement: Normal speech and movement present Assessment & Plan Assessment & Plan (1) Chronic heart failure with preserved ejection fraction (HFpEF): Code(s): I50.32 - Chronic diastolic (congestive) heart failure Category: Medical Plan: History of heart failure. 07/09/2024-echo study showed a normal LV systolic function with an ejection fraction between 60-65%, moderately increased LV wall thickness, elevated filling pressures, and [id number] aortic valve stenosis. Clinically stable and euvolemic. Discussed in detail signs and symptoms to watch for with aortic stenosis. We will repeat echoes annually to watch for progression of the . (2) Primary hypertension: Code(s): I10 - Essential (primary) hypertension Category: Medical Plan: Blood pressure today is well-controlled. Continue current regimen. Advised monitoring blood pressures at home with an goal of less than 130/80. (3) Hyperlipidemia: Code(s): E78.5 - Hyperlipidemia, unspecified Category: Medical Plan: Most recent LDL at 127. Given her multiple risk factors, we will start patient on a statin therapy and repeat lipid profile in 3 months' time. Ideally, LDL goal less than 70. (4) Smoker: Code(s): F17.200 - Nicotine dependence, unspecified, uncomplicated Category: Medical Plan: Patient notes that she reduced her smoking from a pack a day to 3 cigarettes a day. Emphasized on complete smoking cessation. Patient verbalizes understanding of this. Advised heart healthy diet, exercise, losing weight, med compliance, and aggressive management of vascular risk factors. Follow up in 6 months. In the interim, patient will call the office with any concerns or change in symptoms. This note was generated using voice recognition software. While every effort has been made to ensure accuracy and proper president practicing urologist, there may be occasional errors that could affect the content or meaning of the described symptoms. Orders: Orders Liver Panel 3 Months E78.5 - Hyperlipidemia, unspecified Lipid Panel 3 Months E78.5 - Hyperlipidemia, unspecified Medications: New atorvastatin 20 mg PO DAILY 90 tabs 3RF Coding Level of Care Code Est Pt Level 4 (26699) Complex EM visit Add On G2211 Diagnoses Chronic heart failure with preserved ejection fraction (HFpEF) I50.32 Primary hypertension I10 Hyperlipidemia E78.5 Smoker F17.200 Time Spent (min) 32 Comment Time spent in reviewing the chart, test results, assessment, counseling and documentation.
[2024-09-29 13:59] VITALS: BP 120/72; PULSE 82
== END 2024-09-29 14:29 | disposition home or self-care (01) ==
LOC: HO.HCS 13:51
PROVIDERS: PCP Family Medicine
DX: I50.32 Chronic diastolic (congestive) heart failure (principal); I10 Essential (primary) hypertension; E78.5 Hyperlipidemia, unspecified; F17.200 Nicotine dependence, unspecified, uncomplicated
CPT/HCPCS: 99214; G2211

== ENCOUNTER → 2024-09-29 13:51 | Outpatient (BNVA) | payer MEDICARE, MEDICAID, SELFPAY | PROVIDERS: PCP Family Medicine | DX: I11.0 Hypertensive heart disease with heart failure (principal); I50.32 Chronic diastolic (congestive) heart failure; E78.5 Hyperlipidemia, unspecified; F17.210 Nicotine dependence, cigarettes, uncomplicated | CPT/HCPCS: 99212 ==